=== PATIENT | female | born 1985 | race Caucasian/White ===

== ENCOUNTER → 2016-11-15 | Outpatient (REF) | payer OTHER ==
[~2016-11-15] MED LIST: ANUS2.5C2 PR; CITRACAL+D OR; DOCU10ELUD PO; IBUP600T OR; IBUP80TA PO; LABE20TAB PO; LANOOIN21 TOP; MOM30SS PO; MULTIVIT OR; NECON OR; PERC5TAB8 OR; PERCOCET PO; PRENTAB9 PO; VITAMIN B-12 OR; VITAMIN D OR
[2016-11-15 19:48] LABS: MEAN CORPUSCULAR HEMOGLOBIN 26.4 pg (27.0-33.0); MEAN CORPUSCULAR HGB CONC 32.3 g/dl (32.0-36.5); MEAN CORPUSCULAR VOLUME 81.9 fl (80.0-96.0); RED CELL DISTRIBUTION WIDTH 14.3 % (11.5-14.5); WHITE BLOOD COUNT 2.7 K/mm3 (4.0-10.0)
[2016-11-15 20:02] LABS: CONTROL LINE HCG INT CTR LINE PRESENT
[2016-11-15 20:26] LABS: ALBUMIN/GLOBULIN RATIO 1.21 (1.00-1.93); ALKALINE PHOSPHATASE 61 U/L (45-117); ALT/SGPT 18 U/L (12-78); ANION GAP 5 MEQ/L (8-16); AST/SGOT 16 U/L (15-37); BILIRUBIN,TOTAL 0.6 MG/DL (0.2-1.0); BLOOD UREA NITROGEN 16 MG/DL (7-18); CALCIUM LEVEL 8.9 MG/DL (8.5-10.1); CARBON DIOXIDE LEVEL 28 MEQ/L (21-32); CHLORIDE LEVEL 106 MEQ/L (98-107); CREATININE FOR GFR 0.63 MG/DL (0.55-1.02); GLOMERULAR FILTRATION RATE > 60.0 (>60); GLUCOSE, FASTING 93 MG/DL (70-105); HCG, SERUM QUANTITATIVE < 1.0 MIU/ML; POTASSIUM SERUM 4.3 MEQ/L (3.5-5.1); SODIUM LEVEL 139 MEQ/L (136-145); TOTAL PROTEIN 7.3 GM/DL (6.4-8.2)
[2016-11-16 13:33] LABS: FERRITIN 4 NG/ML (8-252); PERCENT SATURATION 14.9 % (13.2-37.4); TOTAL IRON BINDING CAPACITY 423 UG/DL (250-450)
[2016-11-16 13:34] LABS: RETIC HEMOGLOBIN CONTENT CHr 27.8 PG (24-36); RETICULOCYTE % ADVIA2120 1.4 % (0.5-1.5)
[2016-11-16 13:43] LABS: FOLATE 15.3 NG/ML (>5.4); VITAMIN B12 LEVEL 454 PG/ML (247-911)
== END ==
LOC: M SFHCCLAY 09:25
PROVIDERS: ATTEND Nurse Practitioner Family
DX: R10.30 Lower abdominal pain, unspecified (principal)

== ENCOUNTER → 2016-11-21 | Outpatient (CLI) | payer OTHER ==
--- NOTE | 2016-11-21 09:06 | REP ---
ABDOMEN ULTRASOUND COMPLETE: 11/21/2016 CLINICAL HISTORY: Lower abdominal pain. FINDINGS: The liver is homogeneous in echotexture. There is no focal hepatic mass, intrahepatic biliary dilatation, cyst nor perihepatic ascites. There is no hepatomegaly. Gallbladder is elongated and thin. It may be partially contracted. Wall thickness is 2.3 mm which is normal. There is no visible stone, sludge, pericholecystic fluid or mass. No sonographic Barros sign. Common duct is also 2.3 mm without a filling defect or dilatation. Pancreas is somewhat limited in evaluation due to gas shadowing. Bilateral kidneys show the right 11.6 x 5.1 x 4.7 cm and the left 12.6 x 5.1 x 6.2 cm. Somewhat hyperechoic pyramids are noted and there is bilateral cortical thinning more on the right than left. Right kidney shows a lower pole 1.2 x 7 mm stone. I do not see hydronephrosis. Spleen is 12.3 cm in length, not enlarged and without focal mass. No adjacent ascites. The aorta has a maximum AP diameter of 2.2 cm below the diaphragm, 1.6 cm at the renal arteries and 1.1 cm at the bifurcation. No aneurysm. IMPRESSION: 1. Liver homogeneous without focal lesion and the common duct 2.3 mm without a stone or dilatation. 2. The gallbladder may be partially contracted but there is no stone, wall thickening, pericholecystic fluid or mass. 3. Pancreas is seen only in part and that portion was grossly unremarkable as is the spleen. 4. Bilateral kidney shows some cortical thinning and hyperechoic pyramids that may reflect some calcifications in pyramids beginning to form. There is a 1.2 x 0.7 cm lower pole stone on the left. 5. Aorta intact. Signed by Anton Sanchez MD 11/21/2016 09:14 A
--- NOTE | 2016-11-21 09:09 | REP ---
PELVIC AND ENDOVAGINAL PROBE ULTRASOUND: 11/21/2016 CLINICAL HISTORY: Lower abdominal pain. No prior studies. FINDINGS: Both transabdominal and endovaginal probes were utilized. Bladder measured 11.6 x 8.7 x 7.9 cm without wall thickening, mass or stone. Uterus is anteverted and is 10 x 4 x 5.3 cm. Central endometrial echogenic stripe has a thickness of 13.7 mm on the EV probe. It is grossly homogeneous. No uterine mass or contour abnormality. No free fluid in the cul-de-sac. The left ovary is absent, removed in 2005 according to the patient. The right ovary is 3.1 x 2.5 x 2.1 cm. On Doppler tracing it shows resistive index of 0.38. There is a tubular cystic structure in the right adnexa at least 3 x 1.0 x 1.0 cm likely a hydrosalpinx. There is also a subcentimeter follicle in the ovary adjacent. No free fluid. IMPRESSION: 1. Uterus and endometrial stripe grossly intact without pelvic free fluid. Left ovary surgically absent. 2. Right ovary grossly intact with normal Doppler for blood flow but there is a tubular cystic structure adjacent, likely a hydrosalpinx. No free fluid. Signed by Anton Sanchez MD 11/21/2016 09:15 A
== END ==
LOC: M RAD 06:45
PROVIDERS: ATTEND Nurse Practitioner Family
DX: R10.30 Lower abdominal pain, unspecified (principal)

== ENCOUNTER → 2016-11-30 | Outpatient (CLI) | payer OTHER ==
[2016-11-30 13:28] LABS: INR 0.96
== END ==
LOC: M SMT 08:46
PROVIDERS: ATTEND Nurse Practitioner Women's Health
DX: Z01.818 Encounter for other preprocedural examination (principal); N20.0 Calculus of kidney

== ENCOUNTER → 2016-12-07 | Day surgery (SDC) | payer OTHER ==
[~2016-12-07] VITALS: Ht 157.5 cm; Wt 68.0 kg
[~2016-12-07] MED LIST changes: +ALBU17IN INH; +CALC600T10 PO; +FLOM5CAP PO; +IRON1TAB PO; +LR 1,000 ML IV SCH; +MIDAZOLAM INJ 2 MG/2 ML VIAL (J2250) As Ordered ONE; +PROPOFOL 200 MG/20 ML VIAL As Ordered ONE; +VITA100066 PO; +VITA500T53 PO; +ceFAZolin 2 GM/D5W 50 ML IV BAG (J0690) As Ordered ONE
--- NOTE | 2016-12-07 07:59 | REP ---
Clinical: Nephrolithiasis. Technique: Supine abdominal radiograph. Findings: Left intrarenal calculi are suggested and measure up to approximately 7 mm. Further evaluation of the urinary tract system is significantly limited due to overlying bowel gas. No evidence for bowel obstruction. Findings suggesting prior gastric surgery. No organomegaly. Skeletal structures intact. Impression: Nonobstructing left intrarenal calculi up to approximately 7 mm. Further evaluation of the urinary tract system is limited due to overlying bowel gas. Signed by Sukhdeep Resendiz MD 12/07/2016 07:51 A
[2016-12-07 09:35] VITALS: BP 111/78
--- NOTE | 2016-12-07 10:45 | RO ---
DATE OF PROCEDURE: 12/07/2016 PREPROCEDURE DIAGNOSIS: Left kidney stone. POSTPROCEDURE DIAGNOSIS: Left kidney stone. PROCEDURE: Left extracorporeal shock wave lithotripsy. SURGEON: Clay Brown MD AUTOMOTIVE ALIGNMENT SPECIALIST: None. ANESTHESIA: Monitored anesthesia care (MAC). COMPLICATIONS: None. ESTIMATED BLOOD LOSS: N/A. HISTORY OF PRESENT ILLNESS: This is a [id number] female patient with a left kidney stone in lower pole of about 1.2 cm. The patient has consented for a left extracorporeal shock wave lithotripsy. DESCRIPTION OF PROCEDURE: With the patient under MAC anesthesia in supine position, after finding the stone with ultrasound and x-ray, we gave a total of 2500 shock wave lithotripsies at a power of 1 to 20. We then proceeded to actually give the first 100 shock wave lithotripsies at a power of 1 to 5. The following 100 shock wave lithotripsies were done at a power of 5 to 10. The final 2300 shock wave lithotripsies were done at a power of 10 to 20. There were no complications during surgery. The patient tolerated well the procedure. The patient will go home today with Flomax and Percocet. She will followup at [facility] in about 3 weeks.
== END ==
LOC: M SDC 06:27
PROVIDERS: ATTEND Urology
DX: N20.0 Calculus of kidney (principal); R01.1 Cardiac murmur, unspecified; D64.9 Anemia, unspecified; J45.909 Unspecified asthma, uncomplicated; Z91.040 Latex allergy status; Z79.899 Other long term (current) drug therapy; Z98.51 Tubal ligation status; Z98.84 Bariatric surgery status
CPT/HCPCS: 50590; 74000; J0690; J2250

== ENCOUNTER → 2017-01-02 | Outpatient (CLI) | payer OTHER ==
[~2017-01-02] MED LIST changes: -LR 1,000 ML IV SCH; -MIDAZOLAM INJ 2 MG/2 ML VIAL (J2250) As Ordered ONE; -PROPOFOL 200 MG/20 ML VIAL As Ordered ONE; -ceFAZolin 2 GM/D5W 50 ML IV BAG (J0690) As Ordered ONE
--- NOTE | 2017-01-02 10:59 | REP ---
KUB, ONE VIEW: HISTORY: Left kidney stone. COMPARISON: 12/07/2016 Air is present in small and large intestine. There are no air-fluid levels or dilated loops of intestine. There is no pneumoperitoneum. Calcification is present overlying the left kidney, consistent with nephrolithiasis. Surgical clips are present in the left upper quadrant. IMPRESSION: Left nephrolithiasis. Signed by Yuan Wall MD 01/02/2017 11:09 A
== END ==
LOC: M SMT 08:32
PROVIDERS: ATTEND Nurse Practitioner Women's Health
DX: N20.0 Calculus of kidney (principal)

== ENCOUNTER → 2017-05-24 | Outpatient (REF) | payer OTHER ==
[~2017-05-24] MED LIST changes: -CALC600T10 PO; +CALC600T31 PO
== END ==
LOC: M SFHCCLAY 10:51
PROVIDERS: ATTEND Nurse Practitioner Family
DX: J02.9 Acute pharyngitis, unspecified (principal)

== ENCOUNTER 2018-07-22 07:15 | Day surgery (SDC) | payer OTHER ==
[2018-07-22] MEDS: LR 1,000 ML IV ×4 (08:01→14:29)
[2018-07-22 08:33] LABS: HEMATOCRIT 36.2 % (36.0-47.0); HEMOGLOBIN 12.4 g/dl (12.0-15.5); MEAN CORPUSCULAR HEMOGLOBIN 30.9 pg (27.0-33.0); MEAN CORPUSCULAR HGB CONC 34.3 g/dl (32.0-36.5); MEAN CORPUSCULAR VOLUME 90.3 fl (80.0-96.0); PLATELET COUNT, AUTOMATED 157 10^3/uL (150-450); RED BLOOD COUNT 4.01 10^6/uL (4.00-5.40); RED CELL DISTRIBUTION WIDTH 12.9 % (11.5-14.5)
[2018-07-22] MEDS ORDERED: ONDANSETRON 4MG/2ML VIAL (J2405) As Ordered (09:00)
[2018-07-22] MEDS ORDERED: dexameTHASONE 4 MG/ML 1ML VIAL (J1100) As Ordered (09:00)
[2018-07-22] MEDS ORDERED: LIDOCAINE 2% INJ 100 MG/5 ML SDV (FOR ANES.) As Ordered (09:00)
[2018-07-22] MEDS ORDERED: PROPOFOL 200 MG/20 ML VIAL As Ordered (09:00)
[2018-07-22] MEDS ORDERED: fentaNYL 100 MCG/2 ML INJECTION (J3010) As Ordered ×2 (09:01→11:29)
[2018-07-22] MEDS ORDERED: MIDAZOLAM INJ 2 MG/2 ML VIAL (J2250) As Ordered (09:01)
[2018-07-22] MEDS ORDERED: ROCURONIUM BROMIDE 50 MG/5 ML VIAL As Ordered ×2 (09:03→11:38)
[2018-07-22] MEDS: BUPIVACAINE HCL 0.25% 30 ML VIAL As Ordered (10:17)
[2018-07-22] MEDS: METHYLENE BLUE 0.5% (5MG/ML) 10 ML AMP (PROVAYBLUE)(Q9968 PER 1MG) As Ordered (12:08)
[2018-07-22] MEDS ORDERED: KETOROLAC 60 MG/2 ML VIAL (J1885) As Ordered (12:35)
[2018-07-22] MEDS: BUPIVACAINE HCL 0.25% 10 ML VIAL As Ordered (12:41)
[2018-07-22] MEDS ORDERED: NEOSTIGMINE 10 MG/10 ML VIAL (J2710) As Ordered (12:41)
[2018-07-22] MEDS ORDERED: GLYCOPYRROLATE INJ 0.2 MG/ML 2 ML VIAL As Ordered ×2 (12:42)
[2018-07-22] MEDS ORDERED: PERCOCET 5MG/325MG TAB As Ordered (13:07)
[2018-07-22] MEDS: PERCOCET 5MG/325MG TAB PO ×2 (13:10→13:40)
[2018-07-22] MEDS ORDERED: fentaNYL 100 MCG/2 ML INJECTION (J3010) IV (13:15)
[2018-07-22] MEDS ORDERED: ONDANSETRON 4MG/2ML VIAL (J2405) IV ×2 (13:15)
[2018-07-22] MEDS ORDERED: PERCOCET 5MG/325MG TAB PO ×2 (13:15)
[2018-07-22] MEDS ORDERED: MORPHINE 4 MG/ML 1ML VIAL/SYRINGE (J2270) IV (13:15)
[2018-07-22] MEDS ORDERED: METOCLOPRAMIDE INJ 10MG/2ML VIAL (J2765) IV (13:15)
[2018-07-22] MEDS ORDERED: MEPERIDINE INJ 25 MG/ML VIAL (J2175) IV (13:15)
[2018-07-22] MEDS ORDERED: DOCUSATE SODIUM 100 MG CAP PO (21:00)
== END 2018-07-22 16:50 | disposition home or self-care (01) ==
LOC: M SDC 07:15 → M PED 14:00 → M SDC 16:50
DX: R10.2 Pelvic and perineal pain (principal); N94.6 Dysmenorrhea, unspecified; N70.11 Chronic salpingitis; K21.9 Gastro-esophageal reflux disease without esophagitis; D64.9 Anemia, unspecified; J45.909 Unspecified asthma, uncomplicated; Z98.84 Bariatric surgery status; Z79.899 Other long term (current) drug therapy; F41.9 Anxiety disorder, unspecified
CPT/HCPCS: 58571

== ENCOUNTER → 2018-12-17 | Outpatient (REF) | payer MEDICAID, OTHER ==
[~2018-12-17] MED LIST changes: +FERR325T3 PO; +FLOM0.4C39 PO; -FLOM5CAP PO; +FLUO10CA8 PO; +OMEP40CA2 PO; +PERC2.5T PO; +SUCR1TA PO; +VENTAER INH
== END ==
LOC: M SFHCCLAY 14:45
PROVIDERS: ATTEND Nurse Practitioner Family
DX: R50.9 Fever, unspecified (principal)

== ENCOUNTER 2019-11-19 11:18 | Emergency (ER) | payer OTHER ==
[~2019-11-19] VITALS: Ht 157.5 cm; Wt 76.9 kg
[~2019-11-19 11:18] MED LIST changes: -DOCU10ELUD PO; +DOCU5LIQ PO; +FLUO10CA15 PO; -FLUO10CA8 PO; -OMEP40CA2 PO; +OMEP40CA97 PO; +OXYC1TAB23 PO; +VITA500T17 PO; -VITA500T53 PO
[2019-11-19] MEDS ORDERED: KETOROLAC 60 MG/2 ML VIAL (J1885) IM ONE (12:15)
--- NOTE | 2019-11-19 12:27 | REP ---
RIGHT RIB SERIES: Four views of the right ribs are performed. No fracture or bone lesion is seen. The right lung appears unremarkable. IMPRESSION: No evidence of right rib fracture. Electronically Signed by Denny Kincaid MD 11/19/2019 05:37 P
[2019-11-19] MEDS ORDERED: CYCL5TAB PO (12:37)
[2019-11-19] MEDS ORDERED: KETO10TAB PO (12:37)
[2019-11-19 12:41] VITALS: BP 141/72
== END 2019-11-19 13:08 | disposition home or self-care (01) ==
LOC: M ED 11:18
DX: S29.011A Strain of muscle and tendon of front wall of thorax, initial encounter (principal); X58.XXXA Exposure to other specified factors, initial encounter; Y92.9 Unspecified place or not applicable; Y93.9 Activity, unspecified; Y99.9 Unspecified external cause status; R06.02 Shortness of breath; I10 Essential (primary) hypertension; J45.909 Unspecified asthma, uncomplicated; F41.9 Anxiety disorder, unspecified; E28.2 Polycystic ovarian syndrome; Z98.84 Bariatric surgery status; F17.200 Nicotine dependence, unspecified, uncomplicated; Z79.899 Other long term (current) drug therapy; Z91.040 Latex allergy status
CPT/HCPCS: 71100; 96372; 99283; J1885

== ENCOUNTER → 2021-03-14 | Outpatient (REF) | payer MEDICAID ==
[~2021-03-14] MED LIST changes: +CYCL5TAB PO; -FLUO10CA15 PO; +FLUO10CA16 PO; +KETO10TAB PO
[2021-03-14 11:43] LABS: BASO % 0.7 % (0.0-1.0); EOS # 0.2 10^3/uL (0.0-0.5); HEMATOCRIT 42.9 % (36.0-47.0); HEMOGLOBIN 13.9 g/dl (12.0-15.5); LYMPH # 1.3 10^3/uL (1.5-5.0); LYMPH % 21.5 % (24.0-44.0); MEAN CORPUSCULAR HEMOGLOBIN 31.2 pg (27.0-33.0); MEAN CORPUSCULAR HGB CONC 32.4 g/dl (32.0-36.5); MEAN CORPUSCULAR VOLUME 96.2 fl (80.0-96.0); MONO # 0.4 10^3/uL (0.0-0.8); MONO % 6.7 % (2.0-8.0); NEUTROPHILS # 4.1 10^3/uL (1.5-8.5); NEUTROPHILS % 67.8 % (36.0-66.0); PLATELET COUNT, AUTOMATED 163 10^3/uL (150-450); RED BLOOD COUNT 4.46 10^6/uL (4.00-5.40); WHITE BLOOD COUNT 6.1 10^3/uL (4.0-10.0)
[2021-03-14 12:26] LABS: ALT/SGPT 27 U/L (12-78); BILIRUBIN,TOTAL 0.5 MG/DL (0.2-1.0); BLOOD UREA NITROGEN 15 MG/DL (7-18); CALCIUM LEVEL 9.5 MG/DL (8.5-10.1); CARBON DIOXIDE LEVEL 32 MEQ/L (21-32); CHLORIDE LEVEL 105 MEQ/L (98-107); CHOLESTEROL LEVEL 177 MG/DL (<200); CREATININE FOR GFR 0.57 MG/DL (0.55-1.30); FERRITIN 40 NG/ML (8-252); FOLATE 8.1 NG/ML (>5.4); GLOMERULAR FILTRATION RATE > 60.0 (>60); GLUCOSE, FASTING 88 MG/DL (70-100); HDL CHOLESTEROL 50 MG/DL (>40); IRON (FE) 88 UG/DL (50-170); LDL CHOLESTEROL 82 MG/DL (<100); MAGNESIUM LEVEL 2.2 MG/DL (1.8-2.4); NON-HDL-C 127 MG/DL; PERCENT SATURATION 28.6 % (13.2-45.0); POTASSIUM SERUM 4.4 MEQ/L (3.5-5.1); SODIUM LEVEL 140 MEQ/L (136-145); TOTAL 25(OH) VITAMIN D 24.7 NG/ML (30.0-100.0); TOTAL IRON BINDING CAPACITY 308 UG/DL (250-450); TOTAL PROTEIN 7.1 GM/DL (6.4-8.2); TRIGLYCERIDES LEVEL 227 MG/DL (<150); VITAMIN B12 LEVEL 1826 PG/ML (247-911)
== END ==
LOC: M SFHCCLAY 07:29
PROVIDERS: ATTEND Nurse Practitioner Family
DX: Z98.84 Bariatric surgery status (principal); Z13.6 Encounter for screening for cardiovascular disorders

== ENCOUNTER → 2021-09-10 | Outpatient (REF) | payer MEDICAID, OTHER ==
[~2021-09-10] MED LIST changes: +OMEP40CA4 PO; -OMEP40CA97 PO
== END ==
LOC: M WUC 18:17
PROVIDERS: ATTEND Physician Assistant
DX: J02.9 Acute pharyngitis, unspecified (principal)

== ENCOUNTER → 2021-09-10 | Outpatient (REF) | payer MEDICAID, OTHER | LOC: M WUC 18:41 | PROVIDERS: ATTEND Physician Assistant | DX: R05.9 Cough, unspecified (principal) ==

== ENCOUNTER → 2022-02-08 | Outpatient (REF) | payer OTHER ==
[~2022-02-08] MED LIST changes: -FLUO10CA16 PO; +FLUO10CA18 PO
[2022-02-08 11:43] LABS: HEMATOCRIT 39.2 % (36.0-47.0); HEMOGLOBIN 13.5 g/dl (12.0-15.5); MEAN CORPUSCULAR HEMOGLOBIN 31.5 pg (27.0-33.0); MEAN CORPUSCULAR HGB CONC 34.4 g/dl (32.0-36.5); MEAN CORPUSCULAR VOLUME 91.4 fl (80.0-96.0); PLATELET COUNT, AUTOMATED 179 10^3/uL (150-450); RED BLOOD COUNT 4.29 10^6/uL (4.00-5.40); WHITE BLOOD COUNT 4.1 10^3/uL (4.0-10.0)
[2022-02-08 12:24] LABS: ALT/SGPT 36 U/L (12-78); BILIRUBIN,TOTAL 1.5 MG/DL (0.2-1.0); BLOOD UREA NITROGEN 20 MG/DL (7-18); CALCIUM LEVEL 8.8 MG/DL (8.5-10.1); CARBON DIOXIDE LEVEL 27 MEQ/L (21-32); CHLORIDE LEVEL 105 MEQ/L (98-107); CHOLESTEROL LEVEL 160 MG/DL (<200); CHOLESTEROL RISK RATIO 4.324 (<5); FERRITIN 68 NG/ML (8-252); FOLATE 20.2 NG/ML (>5.4); GLOMERULAR FILTRATION RATE > 60.0 (>60); GLUCOSE, FASTING 98 MG/DL (70-100); HDL CHOLESTEROL 37 MG/DL (>40); IRON (FE) 113 UG/DL (50-170); LDL CHOLESTEROL 66 MG/DL (<100); MAGNESIUM LEVEL 2.3 MG/DL (1.8-2.4); NON-HDL-C 123 MG/DL; PERCENT SATURATION 32.1 % (13.2-45.0); POTASSIUM SERUM 5.3 MEQ/L (3.5-5.1); SODIUM LEVEL 136 MEQ/L (136-145); TOTAL 25(OH) VITAMIN D 21.5 NG/ML (30.0-100.0); TOTAL IRON BINDING CAPACITY 352 UG/DL (250-450); TOTAL PROTEIN 7.5 GM/DL (6.4-8.2); TRIGLYCERIDES LEVEL 284 MG/DL (<150); VITAMIN B12 LEVEL 1578 PG/ML (247-911)
[2022-02-08 12:50] LABS: HEMOGLOBIN A1c 4.9 %
== END ==
LOC: M SFHCCLAY 07:24
PROVIDERS: ATTEND Nurse Practitioner Family
DX: Z98.84 Bariatric surgery status (principal); Z13.1 Encounter for screening for diabetes mellitus; E55.9 Vitamin D deficiency, unspecified

== ENCOUNTER → 2022-02-09 | Outpatient (REF) | payer OTHER | LOC: M SFHCCLAY 07:04 | PROVIDERS: ATTEND Nurse Practitioner Family | DX: E87.5 Hyperkalemia (principal) ==

== ENCOUNTER → 2022-12-19 | Outpatient (REF) | payer OTHER ==
[2022-12-19 17:39] LABS: HEMATOCRIT 39.4 % (36.0-47.0); HEMOGLOBIN 13.3 g/dl (12.0-15.5); MEAN CORPUSCULAR HEMOGLOBIN 31.8 pg (27.0-33.0); MEAN CORPUSCULAR HGB CONC 33.8 g/dl (32.0-36.5); MEAN CORPUSCULAR VOLUME 94.3 fl (80.0-96.0); PLATELET COUNT, AUTOMATED 169 10^3/uL (150-450); RED BLOOD COUNT 4.18 10^6/uL (4.00-5.40); WHITE BLOOD COUNT 3.7 10^3/uL (4.0-10.0)
[2022-12-19 18:14] LABS: THYROID STIMULATING HORMONE 1.166 uIU/ML (0.55-4.78)
[2022-12-19 18:15] LABS: FREE T4 1.01 NG/DL (0.89-1.76)
[2022-12-19 18:16] LABS: ALKALINE PHOSPHATASE 70 U/L (46-116); ALT/SGPT 28 U/L (7.0-40); AST/SGOT 16 U/L (<34); BILIRUBIN,TOTAL 0.4 MG/DL (0.3-1.2); BLOOD UREA NITROGEN 22 MG/DL (9-23); CALCIUM LEVEL 9.7 MG/DL (8.5-10.1); CARBON DIOXIDE LEVEL 29 MMOL/L (20-31); CHLORIDE LEVEL 106 MMOL/L (98-107); CREATININE FOR GFR 0.66 MG/DL (0.55-1.30); GLOMERULAR FILTRATION RATE > 60.0 (>60); GLUCOSE, FASTING 86 MG/DL (60-100); POTASSIUM SERUM 4.4 MMOL/L (3.5-5.1); SODIUM LEVEL 140 MMOL/L (136-145); TOTAL PROTEIN 7.2 G/DL (5.7-8.2)
== END ==
LOC: M SFHCCLAY 13:47
PROVIDERS: ATTEND Nurse Practitioner Family
DX: R63.5 Abnormal weight gain (principal); I10 Essential (primary) hypertension; F41.9 Anxiety disorder, unspecified; J45.909 Unspecified asthma, uncomplicated

== ENCOUNTER → 2023-01-29 | Outpatient (REF) | payer OTHER | LOC: M SFHCCLAY 13:03 | PROVIDERS: ATTEND Nurse Practitioner Family | DX: J02.9 Acute pharyngitis, unspecified (principal) ==

== ENCOUNTER → 2023-05-17 | Outpatient (CLI) | payer OTHER | LOC: M CLY 14:38 | PROVIDERS: ATTEND Nurse Practitioner Family | DX: M25.521 Pain in right elbow (principal); Z53.9 Procedure and treatment not carried out, unspecified reason ==

== ENCOUNTER → 2024-05-07 | Outpatient (REF) | payer OTHER ==
[~2024-05-07] MED LIST changes: +FLUO-290 PO; -FLUO10CA18 PO
[2024-05-07 17:33] LABS: BASO % 0.5 % (0.0-1.0); EOS # 0.2 10^3/uL (0.0-0.5); EOS % 3.4 % (0.0-3.0); HEMATOCRIT 39.1 % (36.0-47.0); HEMOGLOBIN 13.2 g/dl (12.0-15.5); LYMPH # 1.7 10^3/uL (1.5-5.0); LYMPH % 31.1 % (24.0-44.0); MEAN CORPUSCULAR HEMOGLOBIN 32.1 pg (27.0-33.0); MEAN CORPUSCULAR HGB CONC 33.8 g/dl (32.0-36.5); MEAN CORPUSCULAR VOLUME 95.1 fl (80.0-96.0); MONO # 0.4 10^3/uL (0.0-0.8); MONO % 7.9 % (2.0-8.0); NEUTROPHILS # 3.2 10^3/uL (1.5-8.5); NEUTROPHILS % 56.9 % (36.0-66.0); PLATELET COUNT, AUTOMATED 195 10^3/uL (150-450); RED BLOOD COUNT 4.11 10^6/uL (4.00-5.40); WHITE BLOOD COUNT 5.6 10^3/uL (4.0-10.0)
[2024-05-07 18:02] LABS: TOTAL IRON BINDING CAPACITY 396 UG/DL (250-425)
[2024-05-07 18:03] LABS: ALBUMIN 4.1 G/DL (3.2-5.2); ALKALINE PHOSPHATASE 65 U/L (46-116); ALT/SGPT 32 U/L (7.0-40); AST/SGOT 27 U/L (<34); BILIRUBIN,TOTAL 0.5 MG/DL (0.3-1.2); BLOOD UREA NITROGEN 24 MG/DL (9-23); CALCIUM LEVEL 9.5 MG/DL (8.5-10.1); CARBON DIOXIDE LEVEL 30 MMOL/L (20-31); CHLORIDE LEVEL 101 MMOL/L (98-107); CREATININE FOR GFR 0.77 MG/DL (0.55-1.30); GLOMERULAR FILTRATION RATE > 60.0 (>60); GLUCOSE, FASTING 83 MG/DL (60-100); IRON (FE) 120 UG/DL (50-170); PERCENT SATURATION 30.3 % (13.2-45.0); POTASSIUM SERUM 4.4 MMOL/L (3.5-5.1); SODIUM LEVEL 137 MMOL/L (136-145); TOTAL PROTEIN 7.2 G/DL (5.7-8.2)
[2024-05-07 18:06] LABS: FREE T4 1.26 NG/DL (0.89-1.76); THYROID STIMULATING HORMONE 0.999 uIU/ML (0.55-4.78)
[2024-05-07 18:07] LABS: FERRITIN 32.2 NG/ML (7.3-270.7)
[2024-05-07 18:08] LABS: FOLATE 12.46 NG/ML (>5.4)
[2024-05-07 18:09] LABS: VITAMIN B12 LEVEL 1134 PG/ML (211-911)
[2024-05-07 18:12] LABS: HEMOGLOBIN A1c 4.7 % (4.0-6.0)
== END ==
LOC: M SFHCCLAY 14:53
PROVIDERS: ATTEND Nurse Practitioner Family
DX: F41.9 Anxiety disorder, unspecified (principal); I10 Essential (primary) hypertension; Z98.84 Bariatric surgery status

== ENCOUNTER → 2024-08-26 | Outpatient (REF) | payer OTHER ==
[2024-08-26 20:47] LABS: RSV AMPLIFICATION NEGATIVE (NEGATIVE)
== END ==
LOC: M SFHCCLAY 16:44
PROVIDERS: ATTEND Physician Assistant
DX: R05.1 Acute cough (principal)

== ENCOUNTER → 2025-05-19 | Outpatient (REF) | payer OTHER ==
[~2025-05-19] MED LIST changes: -CYCL5TAB PO; +CYCL5TAB4 PO; -FLOM0.4C39 PO; +TAMS-18 PO
== END ==
LOC: M SFHCCLAY 15:19
PROVIDERS: ATTEND Nurse Practitioner Family
DX: Z53.9 Procedure and treatment not carried out, unspecified reason (principal)

== ENCOUNTER → 2025-05-26 | Outpatient (REF) | payer OTHER ==
[2025-05-26 19:00] LABS: BASO # 0.0 10^3/uL (0.0-0.2); BASO % 0.6 % (0.0-1.0); EOS # 0.3 10^3/uL (0.0-0.5); EOS % 4.9 % (0.0-3.0); LYMPH # 2.2 10^3/uL (1.5-5.0); LYMPH % 32.5 % (24.0-44.0); MONO # 0.4 10^3/uL (0.0-0.8); MONO % 6.6 % (2.0-8.0); NEUTROPHILS # 3.7 10^3/uL (1.5-8.5); NEUTROPHILS % 55.1 % (36.0-66.0); PLATELET COUNT, AUTOMATED 226 10^3/uL (150-450)
[2025-05-26 20:04] LABS: ESTIMATED AVERAGE GLUCOSE 94.0 MG/DL (60-110)
[2025-05-26 22:02] LABS: ALT/SGPT 33 U/L (7.0-40); AST/SGOT 31 U/L (<34); CALCIUM LEVEL 9.2 MG/DL (8.5-10.1); CARBON DIOXIDE LEVEL 25 MMOL/L (20-31); CHLORIDE LEVEL 102 MMOL/L (98-107); CHOLESTEROL LEVEL 154 MG/DL (<200); CHOLESTEROL RISK RATIO 4.40 (<5); CREATININE FOR GFR 0.74 MG/DL (0.55-1.30); FREE T4 1.20 NG/DL (0.89-1.76); GLOMERULAR FILTRATION RATE > 90.0 (>60); IRON (FE) 45 UG/DL (50-170); NON-HDL-C 119.0 MG/DL; PERCENT SATURATION 12.6 % (13.2-45.0); POTASSIUM SERUM 4.6 MMOL/L (3.5-5.1); SODIUM LEVEL 141 MMOL/L (136-145); TRIGLYCERIDES LEVEL 609 MG/DL (<150); VITAMIN B12 LEVEL 713 PG/ML (211-911)
== END ==
LOC: M SFHCCLAY 13:20
PROVIDERS: ATTEND Nurse Practitioner Family
DX: I10 Essential (primary) hypertension (principal); F41.9 Anxiety disorder, unspecified; Z98.84 Bariatric surgery status; E66.9 Obesity, unspecified